=== PATIENT | female | born 1940 | race Caucasian/White ===

== ENCOUNTER 2017-03-19 09:19 | Inpatient (IN) | payer OTHER ==
[~2017-03-19] VITALS: Ht 154.9 cm; Wt 59.4 kg
[~2017-03-19 09:19] MED LIST: BLOOD PRESSURE; BYSTOLIC 5 MG5 M1 PO; COUMADIN 5 MG TA5 M1 PO; DEXALANT PO; DURAGESIC1 EAC1 TRANSDERM; LISINOPRIL20 MG PO; LOTREL 5-10 MG1 EACH PO; MYRBETRIQ50 MG PO; NEURONTIN 300300 M1 PO; NEXIUM40 MG PO; OXYCONTIN10 M1 PO
[2017-03-19 09:33] VITALS: BP 121/77
[2017-03-19 10:01] LABS: ABSOLUTE BASOPHILS 0.1 thou/uL (0.0-0.2); ABSOLUTE EOSINOPHILS 0.1 thou/uL (0.0-0.7); ABSOLUTE LYMPHOCYTES 1.9 thou/uL (0.8-5.3); ABSOLUTE MONOCYTES 0.8 thou/uL (0.0-1.2); ABSOLUTE NEUTROPHILS 5.4 thou/uL (1.6-8.1); BASOPHILS 1.1 %; EOSINOPHILS 0.8 %; HEMATOCRIT 41.9 % (37.0-47.0); HEMOGLOBIN 13.5 gm/dL (12.0-15.0); LYMPHOCYTES 22.9 %; MCH 29.5 pg (26.0-34.0); MCHC 32.2 g/dL (28.0-37.0); MCV 91.7 fL (80.0-100.0); MONOCYTES 9.5 %; MPV 8.2 fl. (7.2-11.1); NUCLEATED RBCS 0 /100WBC; PLATELET COUNT* 251 thou/uL (150-400); POLYS 65.7 %; RBC 4.57 mil/uL (4.20-5.00); RDW-CV 13.8 % (10.5-14.5); WBC 8.1 thou/uL (4.0-11.0)
[2017-03-19 10:32] LABS: CALCIUM 8.6 mg/dL (8.5-10.1); CREATININE 1.1 mg/dL (0.6-1.3); POTASSIUM 3.2 mmol/L (3.5-5.1)
[2017-03-19 10:34] LABS: URINE BILIRUBIN NEGATIVE (Negative); URINE BLOOD TRACE (Negative); URINE CLARITY CLEAR; URINE COLOR YELLOW; URINE GLUCOSE-RANDOM NEGATIVE (Negative); URINE KETONES NEGATIVE (Negative); URINE NITRITE-REFLEX NEGATIVE (Negative); URINE PROTEIN NEGATIVE (Negative); URINE UROBILINOGEN 0.2 E.U./dl (0.2-1.0)
[2017-03-19 10:35] LABS: URINE LEUKOCYTES-REFLEX 3+ (Negative)
[2017-03-19 10:38] LABS: ALBUMIN 3.6 g/dL (3.4-5.0); TOTAL BILIRUBIN 0.9 mg/dL (<0.1-1.0); TOTAL PROTEIN 6.8 g/dL (6.4-8.2)
[2017-03-19 10:56] LABS: BACTERIA-REFLEX >30 Many /HPF (None Seen); SQUAMOUS 4-10 Moderate /LPF (0-3); TRANSITIONAL EPITHEL CELL 4-10 Moderate /LPF (None Seen); URINE RBC 3-10 Few /HPF (0-2)
[2017-03-19 10:57] LABS: CASTS None Seen /LPF (None Seen); CRYSTALS None Seen /LPF (None Seen); MUCUS None Seen strn/LPF (None Seen)
[2017-03-19 12:03] LABS: INR 1.3; PROTIME 12.2 Seconds (9.20-11.50)
[2017-03-19 13:08] VITALS: BP 131/72
[2017-03-19 13:15] VITALS: BP 126/78
--- NOTE | 2017-03-19 17:06 | NUR ---
PATIENT ARRIVED FROM ER THIS AFTERNOON. PATIENT SETTLED TO ROOM AND HISTORY, ASSESSMENT AND VITALS COMPLETED AND DOCUMENTED. PATIENT DENIES ANY PAIN. DAWOODTNET HAS HAD NO BOWEL MOVEMENTS OR COMPLAINTS OF NAUSEA SINCE ARRIVAL. PATIENT IS TOLERATING CLEAR LIQUIDS. PATIENT IS UP TO BATHROOM WITH STANDBY ASSIST. PATIENT DENIES ANY NEEDS AT THIS TIME. CALL LIGHT WITHIN REACH. WILL CONTINUE TO MONITOR.
[2017-03-19] MEDS ORDERED: OXYCODONE HCL 55 MG PO (17:48)
[2017-03-20 00:15] VITALS: BP 121/63
[2017-03-20 04:37] LABS: ABSOLUTE BASOPHILS 0.1 thou/uL (0.0-0.2); ABSOLUTE EOSINOPHILS 0.1 thou/uL (0.0-0.7); ABSOLUTE LYMPHOCYTES 2.2 thou/uL (0.8-5.3); ABSOLUTE MONOCYTES 0.6 thou/uL (0.0-1.2); ABSOLUTE NEUTROPHILS 2.7 thou/uL (1.6-8.1); EOSINOPHILS 2.2 %; HEMATOCRIT 36.9 % (37.0-47.0); HEMOGLOBIN 11.8 gm/dL (12.0-15.0); LYMPHOCYTES 38.6 %; MCH 29.4 pg (26.0-34.0); MCV 91.9 fL (80.0-100.0); MONOCYTES 11.2 %; MPV 8.3 fl. (7.2-11.1); NUCLEATED RBCS 0 /100WBC; PLATELET COUNT* 227 thou/uL (150-400); RBC 4.01 mil/uL (4.20-5.00); RDW-CV 13.8 % (10.5-14.5); WBC 5.7 thou/uL (4.0-11.0)
[2017-03-20 04:46] LABS: INR 1.2; PROTIME 12.1 Seconds (9.20-11.50)
[2017-03-20 04:50] LABS: CALCIUM 8.4 mg/dL (8.5-10.1); CREATININE 0.8 mg/dL (0.6-1.3)
[2017-03-20 05:14] LABS: POTASSIUM 4.4 mmol/L (3.5-5.1)
--- NOTE | 2017-03-20 05:20 | NUR ---
PATIENT SLEPT WELL DURING THIS SHIFT. PT UP TO BATHROOM WITH SLOW STEADY GAIT. PT WITH FLUIDS INFUSING PER DR ORDER. PT GIVEN TYLENOL AT HS FOR PAIN. FREQUENTLY USED ITEMS AND CALL LIGHT WITHIN REACH. SIDERAILS UPX2. WILL CONTINUE TO MONITOR.
--- NOTE | 2017-03-20 14:34 | NUR ---
RE: PHARMACY CONSULT FOR ISAR SCORE 4 OR GREATER. PT HAS ONE HOME MEDICATION THAT IS LISTED ON THE BEERS CRITERION. ESOMEPRAZOLE (WHEN GIVEN > 8 WEEKS) INCREASES RISK OF FRACTURES & C.DIFFICILE INFECTION. PHARMACY AVAILABLE FOR ANY FURTHER QUESTIONS OR ISSUES ON THIS PATIENT. THANK YOU.
[2017-03-20 15:45] VITALS: BP 140/82
--- NOTE | 2017-03-20 16:46 | NUR ---
CM ASSESSMENT: Pt is A&O. Resides at home with her dtr. Normally independent with ADLS. Has a walker and cane at home that she can use when necessary. Pt recently discharged at the beginning of February. Pt stated that she used [facility] after that dc, and states "I will not use them again." No hx of SNF. Goal is to return home once medically stable. No needs anticipated. Following.
--- NOTE | 2017-03-20 19:09 | NUR ---
ASSUMED CARE THIS AM. A/O 4, MILD DISCOMFORT RELIEVED WITH ZOFRAN, SUMAN LUNCH AND SUPPER UP TO CHAIR, IVF SUMAN WELL, SUMAN ORAL ABT WELL. NO BM THIS SHIFT. VITAL SIGNS STABLE, RESTED IN BED WITHOUT DISTRESS MOST OF THIS SHIFT. FAMILY AT BEDSIDE INTERMITTENTLY THROUGH SHIFT. CONT POC.
[2017-03-21 00:33] VITALS: BP 142/66
[2017-03-21 04:55] LABS: INR 1.2; PROTIME 11.8 Seconds (9.20-11.50)
[2017-03-21 08:00] VITALS: BP 142/82
[2017-03-21 15:03] VITALS: BP 142/82
[2017-03-21 16:00] VITALS: BP 142/80
[2017-03-21] MEDS ORDERED: ZOFRAN ODT4 MG DISSOLVE (17:47)
[2017-03-21] MEDS ORDERED: CEFUROXIME250 MG PO (17:48)
--- NOTE | 2017-03-21 18:56 | NUR ---
RESUMED CARE FOR THIS PATIENT THIS AM. DENIES DISCOMFORT, DOES C/O NAUSEA, MANAGED WELL WITH ONDANSETRON. VITAL SIGNS STABLE, NO BOWEL MOVEMENT, DID TOLERATE FOOD AND FLUIDS WELL. DISCHARGE ORDERS RECEIVED AFTER GI CONSULT COMPLETED. DISCHARGE ISNTRUCTIONS, FOLLOW UP APPOINTMENTS AND PRESCRIPTIONS DISCUSSED WITH AND GIVEN TO PATIENT AND HER DAUGHTER, BOTH DENY QUESTIONS AT THIS TIME. PERSONAL EFFECTS ACCOUNTED FOR AND IN COMPANY OF DAUGHTER, IV ACCESS REMOVED WITHOUT INCIDENT, TRANSPORTED TO MAIN ENTRANCE VIA WHEELCHAIR BY THIS [employer] CAPTURE POWER PLANT ENGINEER IN STABLE CONDITION.
--- NOTE | 2017-04-01 16:26 | CON ---
[address] [address] CONSULTATION Name: IAN JUAREZ Room: [address] IN M.R.#: [id number] Admission: 03/19/17 Attend Phys: Terry Wolf MD Discharge: 03/21/17 Date of : 42 Report #: [id number] THIS REPORT FOR: //name// CC: Terry Coelho DO DICTATED BY: Love Del [facility] DATE OF SERVICE: 03/20/2017 Please note at the time of this dictation, the patient was seen and physically examined by myself. REASON FOR CONSULTATION: Diarrhea. HISTORY OF PRESENT ILLNESS: This is a 77-year-old female who presented to the emergency room with having nausea and vomiting over the last 3 days including also having diarrhea for the past week, which she states that she was having anywhere from 5-6 a day. She denied any bright red blood or any melena of this and did not have a lot of abdominal discomfort. She states whenever her diarrhea started, she just felt like she had no appetite and that it has increasingly gotten worse. She states she was weighing herself daily when she started not feeling well and she has noticed over the past week that she has lost about 20 pounds with all of this. She states she was having a great deal of more weakness over this period of time and has really not had much to eat. The patient was currently under treatment for a wound infection on her foot in which she was receiving antibiotics, which has just now been stopped via her PICC line since the middle part of February. Prior to her diarrhea starting last Friday, she states her bowels moved daily, soft and formed with no evidence of any bright red blood or any melena. The patient denies ever having an EGD or colonoscopy done in the past. Presently since admission, she states her last bowel movement was before she came to the hospital and she has had no further bowel movements since being here. She has tolerated her liquid diet without any further nausea and vomiting and she is overall feeling better since she has been rehydrated. ALLERGIES: No known drug allergies. MEDICATIONS FROM HOME: Include warfarin, OxyContin, Nexium, Bystolic, Zestril, Duragesic and . PAST MEDICAL HISTORY: Hypertension, GERD, chronic DVT, and history of a TIA. PAST SURGICAL HISTORY: Hysterectomy, carpal tunnel, bilateral knee arthroscopic, bilateral breast biopsies times 2, tonsillectomy, [place] [address] CONSULTATION Name: IAN JUAREZ Room: [address]#: [id number] Admission: 03/19/17 Attend Phys: Terry Wolf MD Discharge: 03/21/17 Date of : 42 Report #: [id number]. FAMILY HISTORY: Negative for any GI or female cancers. SOCIAL HISTORY: Denies alcohol, tobacco, or illegal drug use. REVIEW OF SYSTEMS: Twelve-point review of systems is essentially negative except what is mentioned in the HPI. PHYSICAL EXAMINATION: VITAL SIGNS: Temperature 36.5, pulse 64, respirations 15, and blood pressure 121/63. HEART: Regular rate and rhythm. LUNGS: Clear. ABDOMEN: Soft. Positive bowel sounds in all 4 quadrants with no masses or tenderness noted. LABORATORY DATA: Hemoglobin is 11.8, hematocrit 36.9, white count is 5.7, and platelet is 227. Sodium is 138, potassium 3.2, chloride 99, CO2 of 31, BUN is 17, creatinine is 1.1, GFR is 48, and her glucose is 111. LFTs are all completely normal and her lipase was slightly elevated at 619. PT is 12.2 and INR is 1.3. CT of the abdomen and pelvis was essentially negative. Ultrasound of the abdomen was negative as well. IMPRESSION: 1. Diarrhea. 2. Nausea. 3. Weight loss of 20 pounds over the past week. 4. History of recent antibiotic use for wound infection in the foot. 5. Anticoagulant therapy secondary to chronic deep venous thrombosis. PLAN: 1. We will await stool culture. 2. We will see how the patient does on a regular diet. 3. The patient will need likely an EGD and colonoscopy to evaluate her weight loss as well as her diarrhea if her culture comes back negative for C. diff. Thank you for allowing us to participate in this patient's care. Please do not hesitate to call with any questions in regard to this consult. ADDENDUM This is a 77-year-old female with history of coagulopathy as she is on Coumadin for DVT. The patient reports that she has had diarrhea, nausea for the past several weeks and has lost 20 pounds. She has not been able to give us any stools since admission to run his stool assay. If the imaging studies are unrevealing. We will check C. diff assay and if this was negative, [place] [address] CONSULTATION Name: IAN JUAREZ Room: [address] [place] ..#: [id number] Admission: 03/19/17 Attend Phys: Terry Wolf MD Discharge: 03/21/17 Date of : 42 Report #: [id number] endoscopic evaluation. Note that the patient has never had any endoscopic evaluation in the past. <ELECTRONICALLY SIGNED> By: Jennifer Mejia MD 04/01/17 1626 1140 1927Jennifer Mejia MD /nt
== END 2017-03-21 18:30 | disposition home or self-care (01) | DRG 372 ==
LOC: M.ERS 09:19 → M.3W 11:43 → M.TBA-ER 11:43 → M.3W 13:10
PROVIDERS: Emergency Medicine; ADMIT Internal Medicine
DX: A04.9 Bacterial intestinal infection, unspecified (principal); N39.0 Urinary tract infection, site not specified; E87.1 Hypo-osmolality and hyponatremia; I82.509 Chronic embolism and thrombosis of unspecified deep veins of unspecified lower extremity; E44.1 Mild protein-calorie malnutrition; E86.0 Dehydration; I10 Essential (primary) hypertension; K21.9 Gastro-esophageal reflux disease without esophagitis; R63.4 Abnormal weight loss; R63.0 Anorexia; K44.9 Diaphragmatic hernia without obstruction or gangrene; E86.9 Volume depletion, unspecified; Z79.899 Other long term (current) drug therapy; Z90.710 Acquired absence of both cervix and uterus; Z86.73 Personal history of transient ischemic attack (TIA), and cerebral infarction without residual deficits; Z68.24 Body mass index [BMI] 24.0-24.9, adult; Z79.01 Long term (current) use of anticoagulants

== ENCOUNTER → 2017-03-28 | Outpatient (CLI) | payer OTHER ==
[~2017-03-28] MED LIST changes: +B12INJ IM; +CEFUROXIME250 MG PO; +OXYCODONE HCL 55 MG PO; +ZOFRAN ODT4 MG DISSOLVE
[2017-03-28 06:52] LABS: INR 1.1
== END ==
LOC: M.LAB 05:38
PROVIDERS: Anesthesiology
DX: Z79.01 Long term (current) use of anticoagulants (principal)

== ENCOUNTER 2017-04-26 10:15 | Inpatient (IN) | payer OTHER ==
[~2017-04-26] VITALS: Ht 152.4 cm; Wt 60.3 kg
[~2017-04-26 10:15] MED LIST changes: -B12INJ IM
[2017-04-26 10:21] VITALS: BP 144/83
[2017-04-26 10:42] LABS: ABSOLUTE BASOPHILS 0.1 thou/uL (0.0-0.2); ABSOLUTE LYMPHOCYTES 0.8 thou/uL (0.8-5.3); ABSOLUTE MONOCYTES 0.6 thou/uL (0.0-1.2); ABSOLUTE NEUTROPHILS 2.9 thou/uL (1.6-8.1); BASOPHILS 1.2 %; EOSINOPHILS 0.2 %; HEMATOCRIT 39.7 % (37.0-47.0); HEMOGLOBIN 12.9 gm/dL (12.0-15.0); LYMPHOCYTES 17.4 %; MCH 29.5 pg (26.0-34.0); MCHC 32.4 g/dL (28.0-37.0); MCV 90.9 fL (80.0-100.0); MONOCYTES 14.3 %; MPV 7.9 fl. (7.2-11.1); NUCLEATED RBCS 0 /100WBC; PLATELET COUNT* 208 thou/uL (150-400); POLYS 66.9 %; RBC 4.36 mil/uL (4.20-5.00); RDW-CV 14.4 % (10.5-14.5); WBC 4.3 thou/uL (4.0-11.0)
[2017-04-26 10:51] LABS: APTT 41.3 Seconds (25.0-31.3); INR 2.7; PROTIME 26.3 Seconds (9.20-11.50)
[2017-04-26 11:00] LABS: ANION GAP 9 mmol/L (7-16); BUN 12 mg/dL (7-18); CALCIUM 8.7 mg/dL (8.5-10.1); CHLORIDE 102 mmol/L (98-107); CO2 28 mmol/L (21-32); CREATININE 0.7 mg/dL (0.6-1.3); GLUCOSE 98 mg/dL (70-99); POTASSIUM 4.2 mmol/L (3.5-5.1); SODIUM 139 mmol/L (136-145)
[2017-04-26 11:08] LABS: ALBUMIN 3.7 g/dL (3.4-5.0); ALKALINE PHOSPHATASE 67 U/L (46-116); SGOT 22 U/L (15-37); SGPT 16 U/L (30-65); TOTAL BILIRUBIN 0.4 mg/dL (<0.1-1.0); TOTAL PROTEIN 7.1 g/dL (6.4-8.2); TROPONIN-I LEVEL <0.06 ng/mL (<0.06)
[2017-04-26 12:26] VITALS: BP 116/68
--- NOTE | 2017-04-26 13:00 | NUR ---
PT TO ROOM., APPEARS ALERT O X 4, DENIES CHEST PAIN, SOB, PAIN OR DISCOMFORT, NEURO APPEARS INTACT
[2017-04-26 13:39] VITALS: BP 145/80
[2017-04-26 15:38] VITALS: BP 138/81
[2017-04-26 18:13] LABS: URINE BILIRUBIN NEGATIVE (Negative); URINE BLOOD 2+ (Negative); URINE CLARITY CLEAR; URINE COLOR YELLOW; URINE GLUCOSE-RANDOM NEGATIVE (Negative); URINE KETONES TRACE (Negative); URINE LEUKOCYTES-REFLEX NEGATIVE (Negative); URINE NITRITE-REFLEX NEGATIVE (Negative); URINE PROTEIN NEGATIVE (Negative); URINE UROBILINOGEN 0.2 E.U./dl (0.2-1.0)
[2017-04-26 18:23] LABS: SQUAMOUS 4-10 Moderate /LPF (0-3)
[2017-04-26 18:24] LABS: BACTERIA-REFLEX None Seen /HPF (None Seen); CASTS None Seen /LPF (None Seen); CRYSTALS None Seen /LPF (None Seen); URINE RBC 3-10 Few /HPF (0-2); URINE WBC-REFLEX 0-5 Rare /HPF (0-5)
--- NOTE | 2017-04-26 19:54 | NUR ---
PT RESTING ION BED, NEURO INTACT, O X 4, WITHOUT C/O, LOW GRADE TEMP. STARTED ON IV ABX, BC X 2, UA
[2017-04-26 21:00] VITALS: BP 153/86
[2017-04-27] VITALS (10 sets, daily range): BP systolic 138–159; BP diastolic 80–90
[2017-04-27 05:24] LABS: HEMATOCRIT 38.5 % (37.0-47.0); HEMOGLOBIN 12.7 gm/dL (12.0-15.0); MCH 29.6 pg (26.0-34.0); MCHC 32.9 g/dL (28.0-37.0); MCV 89.9 fL (80.0-100.0); MPV 8.2 fl. (7.2-11.1); RBC 4.29 mil/uL (4.20-5.00); RDW-CV 14.1 % (10.5-14.5)
[2017-04-27 05:38] LABS: INR 1.8; PROTIME 17.5 Seconds (9.20-11.50)
[2017-04-27 05:43] LABS: ALBUMIN 3.3 g/dL (3.4-5.0); CALCIUM 8.5 mg/dL (8.5-10.1); CREATININE 0.6 mg/dL (0.6-1.3); MAGNESIUM 1.8 mg/dL (1.8-2.4); POTASSIUM 3.7 mmol/L (3.5-5.1); TOTAL BILIRUBIN 0.4 mg/dL (<0.1-1.0); TOTAL PROTEIN 6.6 g/dL (6.4-8.2)
--- NOTE | 2017-04-27 08:55 | NUR ---
NO ACUTE CHANGES WITH PT OVER NIGHT, ALERT- NEURO CHECK Q4H, SR, RA, UP SBA WITH 1, NO C/O PAIN/SOA/TINGELING/NUMBNESS, VSS, NEW ORDER ENTERED FOR NON-MEDICATED COUGH DROPS DUE TO COUGHING THAT STARTED THROUGHOUT THE NIGHT, PT TEMP STARTED AT START OF SHIFT AT 99.9 AND TRENDED SLIGHTLY DOWN, REPORT GIVEN TO DAY RN.
[2017-04-27 10:40] LABS: INFLUENZA A ANTIGEN None Detected (None Detect); INFLUENZA B ANTIGEN None Detected (None Detect)
--- NOTE | 2017-04-27 11:48 | EKG ---
[place] [address] ELECTROCARDIOGRAM REPORT Name: IAN JUAREZ Room: [address] ADM IN .R.#: [id number] Admission: 04/26/17 Attend Phys: Kirk Thomas, Discharge: Date of : 42 Report #: [id number] THIS REPORT FOR: //name// [facility] ED Test Date: 2017-04-26 Test Time: 10:41:26 Pat Name: IAN JUAREZ Department: Room: [facility] Gender: F Decorating Inspector: Thanh BHAKTA : 1940 Requested By: Robbie Curtis Order Number: [id number] MD: Russell Hernandez Measurements Intervals [place] Rate: 64 P: 16 DE: 162 QRS: -21 QRSD: 101 T: -1 QT: 404 QTc: 417 Interpretive Statements Sinus rhythm RSR' in V1 or V2, probably normal variant Left ventricular hypertrophy Borderline T abnormalities, inferior leads Compared to ECG 02/18/2017 08:50:19 RSR' in V1 or V2 now present T-wave abnormality now present Electronically Signed On 04-27-2017 11:48:07 CONVENTIONS RESERVATIONIST by Russell Hernandez [email or web address] <ELECTRONICALLY SIGNED> By: Russell Hernandez MD, FACC 04/27/17 1148 1041 1041 Russell Hernandez MD, FAC /EPI
--- NOTE | 2017-04-27 20:23 | NUR ---
I ASSUMED CARE OF THE PATIENT AT 0700. SHE IS ALERT AND ORIENTED X4, BED IS IN THE LOW LOCKED POSITION AND CALL LIGHT IS IN REACH. PATIENT NEEDS ARE MET AND PAIN IS DENIED. HOURLY ROUNDING WAS COMPLETED. SHE HAS HAD A LOWGRADE FEVER WITH ALL VITALS TODAY. FLU SWAB WAS COMPLETED AND SENT TO LAB, WITH A NEGATIVE RESULT. ACCORDING TO THE FAMILY, INR IS TOO LOW, SO THE 1800 DOSE WAS GIVEN EARLY AND A REDRAW WILL BE DONE AT 2200 AND PHYSICIAN WILL BE CONTACTED IF LESS THAN 2.1. MRI WAS ORDERED FOR FRIDAY WITH ECHO. SHE IS UP WITH SBA AND HAS BATHROOM PRIVILRGES. FAMILY IS VERY INVOLVED IN PATIENT CARE. I SPOKE WITH BOTH DAUGHTERS TODAY AND THEY ARE PLEASED TO BE INCLUDED. WILL CONTINUE TO MONITOR.
[2017-04-27 22:45] LABS: INR 1.6; PROTIME 15.9 Seconds (9.20-11.50)
[2017-04-28] VITALS (7 sets, daily range): BP systolic 141–177; BP diastolic 84–94
[2017-04-28 05:27] LABS: HEMATOCRIT 39.2 % (37.0-47.0); HEMOGLOBIN 12.8 gm/dL (12.0-15.0); MCH 29.5 pg (26.0-34.0); MCHC 32.7 g/dL (28.0-37.0); MCV 90.2 fL (80.0-100.0); MPV 8.3 fl. (7.2-11.1); RBC 4.34 mil/uL (4.20-5.00); RDW-CV 14.1 % (10.5-14.5); WBC 3.9 thou/uL (4.0-11.0)
[2017-04-28 05:37] LABS: INR 1.5
[2017-04-28 05:45] LABS: CALCIUM 8.6 mg/dL (8.5-10.1); CREATININE 0.6 mg/dL (0.6-1.3); MAGNESIUM 1.9 mg/dL (1.8-2.4); POTASSIUM 3.9 mmol/L (3.5-5.1)
--- NOTE | 2017-04-28 07:44 | NUR ---
PATIENT PROGRESSING TOWARDS GOALS: NIH REMAINS A ZERO. NEURO CHECKS COMPLETED Q4H, NO DEFICIT NOTED OTHER THAN WEAK INDUSTRIAL ENGINEERING ANALYST AND LOWER EXT STRENGTH. PATIENT AMBULATES TO BATHROOM WITH NO ISSUES. PATIENT DENIES PAIN AND DISCOMFORT THROUGHOUT SHIFT. HOURLY ROUNDING OBSERVED. CALL LIGHT WITHIN REACH
--- NOTE | 2017-04-28 11:12 | NUR ---
Pt out of room when CM went to assess, Pt known to this CM from previous hospital stay. Pt normally lives at home with her dtr. Independent with ADLs. Has walker and cane at home that she can use when needed. Hx of [facility] HH. No hx of SNF. CM will assess Pt when she returns to her room. Following.
[2017-04-28] MEDS ORDERED: B12INJ IM (17:15)
== END 2017-04-28 17:40 | disposition home or self-care (01) | DRG 871 ==
LOC: M.ERS 10:15 → M.TBA-ER 11:47 → M.2W 11:47
PROVIDERS: Family Medicine; ADMIT Family Medicine
DX: A41.9 Sepsis, unspecified organism (principal); G93.41 Metabolic encephalopathy; N39.0 Urinary tract infection, site not specified; I10 Essential (primary) hypertension; K21.9 Gastro-esophageal reflux disease without esophagitis; E53.8 Deficiency of other specified B group vitamins; G31.84 Mild cognitive impairment of uncertain or unknown etiology; Z96.659 Presence of unspecified artificial knee joint; Z90.710 Acquired absence of both cervix and uterus; Z90.49 Acquired absence of other specified parts of digestive tract; Z86.718 Personal history of other venous thrombosis and embolism; Z86.73 Personal history of transient ischemic attack (TIA), and cerebral infarction without residual deficits; Z79.899 Other long term (current) drug therapy; Z82.49 Family history of ischemic heart disease and other diseases of the circulatory system

== ENCOUNTER → 2017-09-09 | Outpatient (CLI) | payer OTHER ==
[~2017-09-09] MED LIST changes: +B12INJ IM
== END ==
LOC: M.RAD 11:13
DX: Z12.31 Encounter for screening mammogram for malignant neoplasm of breast (principal)

== ENCOUNTER 2020-02-03 18:46 | Emergency (ER) | payer OTHER ==
[~2020-02-03] VITALS: Ht 157.5 cm; Wt 47.2 kg
[2020-02-03] MEDS ORDERED: CELEXA 20 MG TA20 MG (19:08)
[2020-02-03] MEDS ORDERED: REMERON 30 MG T30 M1 PO (19:09)
[2020-02-03] MEDS ORDERED: XARELTO20 MG PO (19:09)
[2020-02-03] MEDS ORDERED: DERMACINRX5000 UNI1 PO (19:10)
[2020-02-03 19:14] LABS: ABSOLUTE BASOPHILS 0.1 thou/uL (0.0-0.2); ABSOLUTE LYMPHOCYTES 1.2 thou/uL (0.8-5.3); ABSOLUTE MONOCYTES 0.6 thou/uL (0.0-1.2); ABSOLUTE NEUTROPHILS 6.9 thou/uL (1.6-8.1); BASOPHILS 0.6 %; EOSINOPHILS 0.4 %; HEMATOCRIT 34.2 % (37.0-47.0); HEMOGLOBIN 10.7 gm/dL (12.0-15.0); LYMPHOCYTES 13.3 %; MCH 27.1 pg (26.0-34.0); MCHC 31.4 g/dL (28.0-37.0); MCV 86.5 fL (80.0-100.0); MONOCYTES 6.7 %; MPV 6.5 fl. (7.2-11.1); NUCLEATED RBCS 0 /100WBC; PLATELET COUNT* 286 thou/uL (150-400); RBC 3.96 mil/uL (4.20-5.00); RDW-CV 15.5 % (10.5-14.5); WBC 8.7 thou/uL (4.0-11.0)
[2020-02-03 19:17] LABS: CALCIUM 8.4 mg/dL (8.5-10.1); CREATININE 0.7 mg/dL (0.6-1.3)
[2020-02-03 19:22] LABS: TOTAL BILIRUBIN 0.4 mg/dL (<0.1-1.0); TOTAL PROTEIN 6.7 g/dL (6.4-8.2)
[2020-02-03 20:40] LABS: URINE BILIRUBIN NEGATIVE (Negative); URINE BLOOD 1+ (Negative); URINE CLARITY CLEAR; URINE COLOR YELLOW; URINE GLUCOSE-RANDOM NEGATIVE (Negative); URINE KETONES NEGATIVE (Negative); URINE LEUKOCYTES-REFLEX 1+ (Negative); URINE NITRITE-REFLEX NEGATIVE (Negative); URINE PROTEIN NEGATIVE (Negative); URINE UROBILINOGEN 0.2 E.U./dl (0.2-1.0)
[2020-02-03 20:54] LABS: CASTS None Seen /LPF (None Seen); CRYSTALS None Seen /LPF (None Seen); MUCUS 0-3 Light strn/LPF (None Seen); SQUAMOUS 0-3 Few /LPF (0-3); TRANSITIONAL EPITHEL CELL 0-3 Few /LPF (None Seen); URINE RBC 3-10 Few /HPF (0-2); URINE WBC-REFLEX 6-15 Few /HPF (0-5); WBC CLUMPS Few (None Seen)
[2020-02-03] MEDS ORDERED: MACROBID 100 M100 M1 PO (22:24)
[2020-02-03 23:23] VITALS: BP 107/67
--- NOTE | 2020-02-04 09:19 | EKG ---
[place] [address] ELECTROCARDIOGRAM REPORT Name: IAN JUAREZ Room: [facility]#: [id number] Admission: 02/03/20 Attend Phys: Discharge: 02/03/20 Date of : 42 Date of Service: 02/03/201851 Report #: [id number] THIS REPORT FOR: //name// [facility] ED Test Date: 2020-02-03 Test Time: 18:52:39 Pat Name: IAN JUAREZ Department: Room: Gender: Unit Clerk: [facility] : 1940 Requested By: Soila Liu Order Number: [id number] MD: Earle Causey Measurements Intervals [place] Rate: 81 P: -37 HI: 190 QRS: -20 QRSD: 94 T: 36 QT: 366 QTc: 425 Interpretive Statements Sinus rhythm Atrial premature complex Left ventricular hypertrophy Anterior Q waves, possibly due to LVH Compared to ECG 04/26/2017 10:41:26 Atrial premature complex(es) now present T-wave abnormality no longer present Electronically Signed On 02-04-2020 9:19:11 A AND P MECHANIC by Earle Causey [email or web address] <ELECTRONICALLY SIGNED> By: Earle Causey MD, FACC 02/04/20918 51 51 Earle Causey MD, FAC /EPI
== END 2020-02-03 23:24 | disposition home or self-care (01) ==
LOC: M.ERS 18:46
PROVIDERS: Physician Assistant
DX: N39.0 Urinary tract infection, site not specified (principal); Z20.828 Contact with and (suspected) exposure to other viral communicable diseases; R41.0 Disorientation, unspecified; R40.20 Unspecified coma; I10 Essential (primary) hypertension; Z90.710 Acquired absence of both cervix and uterus; Z86.73 Personal history of transient ischemic attack (TIA), and cerebral infarction without residual deficits; K21.9 Gastro-esophageal reflux disease without esophagitis; Z90.89 Acquired absence of other organs; Z79.899 Other long term (current) drug therapy